=== PATIENT | male | born 1955 | race Hispanic/Latino ===

== ENCOUNTER 2021-05-31 15:33 | Emergency (ER) | payer BC ==
[~2021-05-31] VITALS: Ht 175.3 cm; Wt 95.3 kg
[2021-05-31 17:23] VITALS: BP 143/86
== END 2021-05-31 17:26 | disposition home or self-care (01) ==
LOC: ER 15:57
DX: I10 Essential (primary) hypertension (principal); E11.9 Type 2 diabetes mellitus without complications; E78.5 Hyperlipidemia, unspecified
CPT/HCPCS: 70450; 93005; 99283

== ENCOUNTER 2022-02-11 00:08 | Inpatient (IN) | payer BC, MEDICARE ==
[~2022-02-11] VITALS: Ht 175.3 cm; Wt 95.3 kg
[2022-02-11] MEDS ORDERED: ONDANSETRON HCL INJ 2MG/ML 2ML 2 MG/ML VIAL IV STA (00:27)
[2022-02-11] MEDS ORDERED: SODIUM CHLORIDE 0.9% 1000ML 1,000 ML IV ONE ×2 (00:30→01:45)
[2022-02-11 00:41] LABS: BASOPHILS % 0.4 % (0.0-1.0); EOSINOPHILS # (AUTO) 0.3 (0.0-0.4); EOSINOPHILS % 2.3 % (0.0-6.0); HEMOGLOBIN 12.7 g/dL (14.0-18.0); LYMPHOCYTES # (AUTO) 1.6 (1.0-3.2); LYMPHOCYTES % 14.3 % (18.0-39.1); MEAN CORPUSCULAR HEMOGLOBIN 28.2 pg (28-32); MEAN CORPUSCULAR VOLUME 91.1 fL (81-99); MONOCYTES # (AUTO) 0.5 (0.2-0.8); MONOCYTES % 4.6 % (4.4-11.3); NEUTROPHILS # (AUTO) 8.6 (2.1-6.9); NEUTROPHILS % 78.1 % (38.7-80.0); PLATELET COUNT 335 x10e3/uL (140-360); RED CELL DISTRIBUTION WIDTH 13.1 % (11.7-14.4)
[2022-02-11 01:03] LABS: ALANINE AMINOTRANSFERASE 72 IU/L (0-55); ALBUMIN 4.3 g/dL (3.5-5.0); ALBUMIN/GLOBULIN RATIO 1.4 (0.8-2.0); ALKALINE PHOSPHATASE 48 IU/L (40-150); ANION GAP 17.9 mmol/L (8-16); BLOOD UREA NITROGEN 25 mg/dL (7-26); BUN/CREATININE RATIO 20 (6-25); CALCIUM 9.1 mg/dL (8.4-10.2); CARBON DIOXIDE 23 mmol/L (22-29); CHLORIDE 108 mmol/L (98-107); CREATINE KINASE 489 IU/L (30-200); CREATININE, SERUM 1.26 mg/dL (0.72-1.25); GLUCOSE 151 mg/dL (74-118); POTASSIUM 3.9 mmol/L (3.5-5.1); SODIUM 145 mmol/L (136-145)
[2022-02-11] MEDS ORDERED: Morphine 2mg Syringe 2 MG/ML SYR IV ONE ×2 (01:15→01:45)
[2022-02-11] MEDS ORDERED: IOPAMIDOL 370 MG/ML 100 ML INFUS..BTL INJ ONE (01:20)
[2022-02-11 01:56] LABS: CLARITY,URINE CLEAR (CLEAR); COLOR,URINE YELLOW (YELLOW); KETONES,URINE NEGATIVE (NEGATIVE); LEUKOCYTE ESTERASE ,URINE NEGATIVE (NEGATIVE); NITRITE,URINE NEGATIVE (NEGATIVE); PROTEIN,URINE DIPSTICK NEGATIVE (NEGATIVE)
[2022-02-11 01:56] LABS: CHOL/HDL RATIO 3.7 (3.9-4.7)
[2022-02-11 02:02] LABS: AMORPHOUS SEDIMENT,URINE FEW (FEW); BACTERIA,URINE FEW /HPF; EPITHELIAL CELLS,URINE RARE /LPF; RBC,URINE 0-5 /HPF (0-5); WBC,URINE (MAN) 0-5 /HPF (0-5)
[2022-02-11] MEDS ORDERED: ASPIRIN 81 MG CHEW TAB PO ONE (02:30)
[2022-02-11] MEDS ORDERED: DEXTROSE 50% SYRINGE 50 ML IV PRN (02:30)
[2022-02-11] MEDS: SODIUM CHLORIDE 0.9% 1000ML 1,000 ML IV SCH ×4 (02:36→16:40)
[2022-02-11] MEDS ORDERED: SODIUM CHLORIDE 0.9% 1000ML 1,000 ML ONE (02:40)
[2022-02-11] MEDS: Morphine 4mg INJECTION 4 MG/ML INJ IV PRN ×2 (02:51→16:41)
[2022-02-11] MEDS ORDERED: LOSARTAN POTAS100 MG PO (04:46)
[2022-02-11] MEDS ORDERED: ROSUVASTATIN CA40 MG PO (04:46)
[2022-02-11] MEDS ORDERED: LABETALOL HCL100 MG PO (04:46)
[2022-02-11] MEDS ORDERED: FENOFIBRATE145 M1 PO (04:46)
[2022-02-11] MEDS ORDERED: METFORMIN HCL500 MG PO (04:46)
[2022-02-11] MEDS ORDERED: NIFEDIAC CC60 MG PO (04:46)
[2022-02-11] MEDS: INSULIN REGULAR, HUMAN 100 UNIT/1 ML SQ SCH ×4 (07:30→21:00)
[2022-02-11 09:02] LABS: CREATINE KINASE 367 IU/L (30-200)
[2022-02-11 15:18] VITALS: BP 149/80
[2022-02-11 15:22] VITALS: BP 149/80
[2022-02-11] MEDS ORDERED: LABETALOL HCL 5 MG/ML 20ML VIAL IV PRN (15:30)
[2022-02-11] MEDS: ONDANSETRON HCL INJ 2MG/ML 2ML 2 MG/ML VIAL IV PRN (16:40)
[2022-02-11] MEDS ORDERED: ENOXAPARIN SOD INJ 40 MG/0.4 ML SYR SC SCH (17:00)
[2022-02-11 17:42] LABS: CREATINE KINASE 902 IU/L (30-200)
[2022-02-11 19:51] VITALS: BP 143/85
[2022-02-11 21:00] VITALS: BP 143/85
[2022-02-12] VITALS (8 sets, daily range): BP systolic 146–169; BP diastolic 80–93
[2022-02-12] MEDS: SODIUM CHLORIDE 0.9% 1000ML 1,000 ML IV SCH ×4 (00:42→18:31)
[2022-02-12 05:03] LABS: BASOPHILS % 0.2 % (0.0-1.0); HEMOGLOBIN 12.5 g/dL (14.0-18.0); LYMPHOCYTES # (AUTO) 0.9 (1.0-3.2); LYMPHOCYTES % 8.4 % (18.0-39.1); MEAN CORPUSCULAR HEMOGLOBIN 28.1 pg (28-32); MEAN CORPUSCULAR HGB CONC 30.5 g/dL (31-35); MEAN CORPUSCULAR VOLUME 92.1 fL (81-99); MONOCYTES # (AUTO) 0.4 (0.2-0.8); MONOCYTES % 4.1 % (4.4-11.3); NEUTROPHILS # (AUTO) 9.4 (2.1-6.9); NEUTROPHILS % 86.9 % (38.7-80.0); PLATELET COUNT 252 x10e3/uL (140-360); RED BLOOD COUNT 4.45 x10e6/uL (4.3-5.7); RED CELL DISTRIBUTION WIDTH 13.2 % (11.7-14.4)
[2022-02-12 05:23] LABS: ALBUMIN 3.4 g/dL (3.5-5.0); ALBUMIN/GLOBULIN RATIO 1.1 (0.8-2.0); ANION GAP 12.6 mmol/L (8-16); CALCIUM 8.2 mg/dL (8.4-10.2); CREATININE, SERUM 0.92 mg/dL (0.72-1.25); POTASSIUM 3.6 mmol/L (3.5-5.1)
[2022-02-12] MEDS: ONDANSETRON HCL INJ 2MG/ML 2ML 2 MG/ML VIAL IV PRN (05:38)
[2022-02-12] MEDS: Morphine 4mg INJECTION 4 MG/ML INJ IV PRN (05:38)
[2022-02-12 05:48] LABS: MAGNESIUM 2.2 MG/DL (1.3-2.1)
[2022-02-12 06:27] LABS: THYROID STIMULATING HORMONE 0.421 uIU/mL (0.350-4.940)
[2022-02-12] MEDS: INSULIN REGULAR, HUMAN 100 UNIT/1 ML SQ SCH ×4 (07:30→21:00)
[2022-02-12] MEDS: FENOFIBRATE 145 MG TAB PO SCH (09:00)
[2022-02-12] MEDS: NIFEDIPINE CR 30 MG TAB PO SCH (09:00)
[2022-02-12] MEDS: LABETALOL HCL 100 MG TAB PO SCH ×2 (09:00→16:37)
[2022-02-12] MEDS: LOSARTAN POTASSIUM 100 MG TAB PO SCH (09:00)
[2022-02-12 15:13] LABS: HEMOGLOBIN 12.3 g/dL (14.0-18.0)
[2022-02-12 15:42] LABS: INR 1.11; PARTIAL THROMBOPLASTIN TIME 29.7 seconds (23.8-35.5); PROTHROMBIN TIME 15.3 seconds (11.9-14.5)
[2022-02-12] MEDS ORDERED: PHYTONADIONE 10 MG/ML AMP IV ONE (16:15)
[2022-02-12] MEDS ORDERED: CRESTOR 10MG PO SCH (21:00)
[2022-02-13] VITALS (7 sets, daily range): BP systolic 115–181; BP diastolic 71–98
[2022-02-13] MEDS ORDERED: HYDROCORTISONE ACETATE 25 MG/SUPP.RECT SUPP RC ONE (01:15)
[2022-02-13] MEDS: SODIUM CHLORIDE 0.9% 1000ML 1,000 ML IV SCH ×4 (04:13→17:12)
[2022-02-13 06:31] LABS: BASOPHILS % 0.3 % (0.0-1.0); EOSINOPHILS % 0.2 % (0.0-6.0); HEMATOCRIT 38.7 % (38.2-49.6); HEMOGLOBIN 12.1 g/dL (14.0-18.0); LYMPHOCYTES % 10.2 % (18.0-39.1); MEAN CORPUSCULAR HEMOGLOBIN 28.6 pg (28-32); MEAN CORPUSCULAR HGB CONC 31.3 g/dL (31-35); MEAN CORPUSCULAR VOLUME 91.5 fL (81-99); MONOCYTES # (AUTO) 0.5 (0.2-0.8); MONOCYTES % 4.8 % (4.4-11.3); NEUTROPHILS # (AUTO) 8.6 (2.1-6.9); NEUTROPHILS % 84.2 % (38.7-80.0); PLATELET COUNT 230 x10e3/uL (140-360); RED BLOOD COUNT 4.23 x10e6/uL (4.3-5.7); RED CELL DISTRIBUTION WIDTH 12.9 % (11.7-14.4)
[2022-02-13 07:01] LABS: ALBUMIN 3.1 g/dL (3.5-5.0); ALBUMIN/GLOBULIN RATIO 0.9 (0.8-2.0); ANION GAP 11.6 mmol/L (8-16); CALCIUM 8.7 mg/dL (8.4-10.2); CREATININE, SERUM 0.81 mg/dL (0.72-1.25); MAGNESIUM 1.9 MG/DL (1.3-2.1); POTASSIUM 3.6 mmol/L (3.5-5.1)
[2022-02-13] MEDS: INSULIN REGULAR, HUMAN 100 UNIT/1 ML SQ SCH ×4 (07:30→21:00)
[2022-02-13] MEDS: LOSARTAN POTASSIUM 100 MG TAB PO SCH (10:03)
[2022-02-13] MEDS: NIFEDIPINE CR 30 MG TAB PO SCH (10:04)
[2022-02-13] MEDS: FENOFIBRATE 145 MG TAB PO SCH (10:05)
[2022-02-13] MEDS: LABETALOL HCL 100 MG TAB PO SCH ×2 (10:05→17:12)
[2022-02-13] MEDS: HYDROCORTISONE ACETATE 25 MG/SUPP.RECT SUPP RC SCH ×2 (10:06→17:12)
[2022-02-13] MEDS: Morphine 4mg INJECTION 4 MG/ML INJ IV PRN (17:26)
[2022-02-14] VITALS (7 sets, daily range): BP systolic 99–131; BP diastolic 54–76
[2022-02-14 05:13] LABS: BASOPHILS % 0.3 % (0.0-1.0); EOSINOPHILS # (AUTO) 0.1 (0.0-0.4); EOSINOPHILS % 0.8 % (0.0-6.0); HEMATOCRIT 36.4 % (38.2-49.6); HEMOGLOBIN 11.7 g/dL (14.0-18.0); LYMPHOCYTES # (AUTO) 0.8 (1.0-3.2); LYMPHOCYTES % 8.7 % (18.0-39.1); MEAN CORPUSCULAR HEMOGLOBIN 28.4 pg (28-32); MEAN CORPUSCULAR HGB CONC 32.1 g/dL (31-35); MEAN CORPUSCULAR VOLUME 88.3 fL (81-99); MONOCYTES # (AUTO) 0.5 (0.2-0.8); NEUTROPHILS # (AUTO) 7.6 (2.1-6.9); NEUTROPHILS % 84.3 % (38.7-80.0); PLATELET COUNT 227 x10e3/uL (140-360); RED BLOOD COUNT 4.12 x10e6/uL (4.3-5.7); RED CELL DISTRIBUTION WIDTH 12.4 % (11.7-14.4)
[2022-02-14 05:34] LABS: ALBUMIN 2.8 g/dL (3.5-5.0); ALBUMIN/GLOBULIN RATIO 0.8 (0.8-2.0); ANION GAP 12.4 mmol/L (8-16); CALCIUM 8.4 mg/dL (8.4-10.2); CREATININE, SERUM 0.74 mg/dL (0.72-1.25); POTASSIUM 3.4 mmol/L (3.5-5.1)
[2022-02-14] MEDS: INSULIN REGULAR, HUMAN 100 UNIT/1 ML SQ SCH ×4 (07:30→21:39)
[2022-02-14] MEDS: LOSARTAN POTASSIUM 100 MG TAB PO SCH (08:17)
[2022-02-14] MEDS: FENOFIBRATE 145 MG TAB PO SCH (08:17)
[2022-02-14] MEDS: NIFEDIPINE CR 30 MG TAB PO SCH (08:17)
[2022-02-14] MEDS: LABETALOL HCL 100 MG TAB PO SCH ×2 (08:18→17:00)
[2022-02-14] MEDS: HYDROCORTISONE ACETATE 25 MG/SUPP.RECT SUPP RC SCH ×2 (08:18→17:00)
[2022-02-14] MEDS ORDERED: POTASSIUM CHLORIDE 10MEQ EA PO NR (11:30)
[2022-02-14] MEDS ORDERED: FUROSEMIDE INJ 10 MG/ML 4 ML VIAL IV NR (11:45)
[2022-02-14] MEDS ORDERED: ONDANSETRON HCL 4 MG ORAL DISINTEGRATING TAB SL PRN (16:00)
[2022-02-15] VITALS (7 sets, daily range): BP systolic 104–119; BP diastolic 50–72
[2022-02-15 06:11] LABS: BASOPHILS % 0.4 % (0.0-1.0); EOSINOPHILS # (AUTO) 0.1 (0.0-0.4); EOSINOPHILS % 1.6 % (0.0-6.0); HEMATOCRIT 34.1 % (38.2-49.6); HEMOGLOBIN 11.3 g/dL (14.0-18.0); LYMPHOCYTES % 11.7 % (18.0-39.1); MEAN CORPUSCULAR HEMOGLOBIN 28.2 pg (28-32); MEAN CORPUSCULAR HGB CONC 33.1 g/dL (31-35); MONOCYTES # (AUTO) 0.6 (0.2-0.8); MONOCYTES % 6.9 % (4.4-11.3); NEUTROPHILS # (AUTO) 6.6 (2.1-6.9); NEUTROPHILS % 78.8 % (38.7-80.0); PLATELET COUNT 264 x10e3/uL (140-360); RED BLOOD COUNT 4.01 x10e6/uL (4.3-5.7)
[2022-02-15 06:34] LABS: ALBUMIN 2.6 g/dL (3.5-5.0); ALBUMIN/GLOBULIN RATIO 0.7 (0.8-2.0); ANION GAP 12.5 mmol/L (8-16); CALCIUM 8.6 mg/dL (8.4-10.2); CREATININE, SERUM 0.81 mg/dL (0.72-1.25); POTASSIUM 3.5 mmol/L (3.5-5.1)
[2022-02-15] MEDS: LOSARTAN POTASSIUM 100 MG TAB PO SCH (08:59)
[2022-02-15] MEDS: NIFEDIPINE CR 30 MG TAB PO SCH (08:59)
[2022-02-15] MEDS: LABETALOL HCL 100 MG TAB PO SCH ×2 (09:00→17:09)
[2022-02-15] MEDS: HYDROCORTISONE ACETATE 25 MG/SUPP.RECT SUPP RC SCH ×2 (09:00→17:09)
[2022-02-15] MEDS: FENOFIBRATE 145 MG TAB PO SCH (09:00)
[2022-02-15] MEDS: INSULIN REGULAR, HUMAN 100 UNIT/1 ML SQ SCH ×4 (09:07→21:00)
[2022-02-15] MEDS ORDERED: IOPAMIDOL 370 MG/ML 100 ML INFUS..BTL INJ ONE (10:06)
[2022-02-15] MEDS: ALBUTEROL SULF 0.083% NEB SOLN 3 ML NEB NEB SCH ×2 (11:35→19:20)
[2022-02-15] MEDS: DOXYCYCLINE HYCLATE TABLET 100 MG TAB PO SCH ×2 (12:22→20:29)
[2022-02-16] VITALS (7 sets, daily range): BP systolic 105–124; BP diastolic 58–73
[2022-02-16] MEDS: ALBUTEROL SULF 0.083% NEB SOLN 3 ML NEB NEB SCH ×4 (00:50→19:30)
[2022-02-16 06:23] LABS: BASOPHILS % 0.4 % (0.0-1.0); EOSINOPHILS # (AUTO) 0.2 (0.0-0.4); HEMATOCRIT 29.6 % (38.2-49.6); HEMOGLOBIN 10.3 g/dL (14.0-18.0); LYMPHOCYTES # (AUTO) 1.2 (1.0-3.2); LYMPHOCYTES % 12.7 % (18.0-39.1); MEAN CORPUSCULAR HEMOGLOBIN 30.7 pg (28-32); MEAN CORPUSCULAR HGB CONC 34.8 g/dL (31-35); MEAN CORPUSCULAR VOLUME 88.1 fL (81-99); MONOCYTES # (AUTO) 0.7 (0.2-0.8); MONOCYTES % 7.3 % (4.4-11.3); NEUTROPHILS % 77.2 % (38.7-80.0); PLATELET COUNT 221 x10e3/uL (140-360); RED BLOOD COUNT 3.36 x10e6/uL (4.3-5.7); RED CELL DISTRIBUTION WIDTH 13.9 % (11.7-14.4)
[2022-02-16 06:53] LABS: ALBUMIN 2.5 g/dL (3.5-5.0); ALBUMIN/GLOBULIN RATIO 0.7 (0.8-2.0); ANION GAP 12.7 mmol/L (8-16); CALCIUM 8.9 mg/dL (8.4-10.2); CREATININE, SERUM 0.93 mg/dL (0.72-1.25); MAGNESIUM 2.2 MG/DL (1.3-2.1); POTASSIUM 3.7 mmol/L (3.5-5.1)
[2022-02-16] MEDS: DOXYCYCLINE HYCLATE TABLET 100 MG TAB PO SCH ×2 (08:23→20:49)
[2022-02-16] MEDS: FENOFIBRATE 145 MG TAB PO SCH (08:24)
[2022-02-16] MEDS: LABETALOL HCL 100 MG TAB PO SCH ×2 (08:24→16:47)
[2022-02-16] MEDS: LOSARTAN POTASSIUM 100 MG TAB PO SCH (08:24)
[2022-02-16] MEDS: NIFEDIPINE CR 30 MG TAB PO SCH (08:24)
[2022-02-16] MEDS: HYDROCORTISONE ACETATE 25 MG/SUPP.RECT SUPP RC SCH ×2 (08:25→16:48)
[2022-02-16] MEDS: INSULIN REGULAR, HUMAN 100 UNIT/1 ML SQ SCH ×4 (08:31→21:00)
[2022-02-17 00:36] LABS: % IRON SATURATION 9 % (15-50); IRON 21 ug/dL (65-175); TOTAL IRON BINDING CAPACITY 244 ug/dL (261-478); TRANSFERRIN 174 mg/dL (174-364)
[2022-02-17] MEDS: ALBUTEROL SULF 0.083% NEB SOLN 3 ML NEB NEB SCH ×4 (01:05→20:45)
[2022-02-17 04:53] VITALS: BP 131/77
[2022-02-17 05:40] LABS: BASOPHILS % 0.5 % (0.0-1.0); EOSINOPHILS # (AUTO) 0.2 (0.0-0.4); EOSINOPHILS % 2.6 % (0.0-6.0); HEMATOCRIT 31.6 % (38.2-49.6); HEMOGLOBIN 10.1 g/dL (14.0-18.0); LYMPHOCYTES # (AUTO) 1.3 (1.0-3.2); LYMPHOCYTES % 16.8 % (18.0-39.1); MEAN CORPUSCULAR HEMOGLOBIN 28.1 pg (28-32); MONOCYTES # (AUTO) 0.6 (0.2-0.8); MONOCYTES % 7.5 % (4.4-11.3); NEUTROPHILS # (AUTO) 5.5 (2.1-6.9); NEUTROPHILS % 71.8 % (38.7-80.0); PLATELET COUNT 328 x10e3/uL (140-360); RED BLOOD COUNT 3.59 x10e6/uL (4.3-5.7); RED CELL DISTRIBUTION WIDTH 12.9 % (11.7-14.4)
[2022-02-17 06:05] LABS: ALBUMIN 2.6 g/dL (3.5-5.0); ALBUMIN/GLOBULIN RATIO 0.7 (0.8-2.0); CALCIUM 9.1 mg/dL (8.4-10.2); CREATININE, SERUM 0.93 mg/dL (0.72-1.25)
[2022-02-17 06:21] LABS: AMYLASE 73 U/L (25-125); LIPASE 29 U/L (8-78)
[2022-02-17] MEDS: INSULIN REGULAR, HUMAN 100 UNIT/1 ML SQ SCH ×4 (07:30→21:00)
[2022-02-17 08:00] VITALS: BP 131/77
[2022-02-17 08:34] VITALS: BP 128/65
[2022-02-17] MEDS: FENOFIBRATE 145 MG TAB PO SCH (09:00)
[2022-02-17] MEDS: DOXYCYCLINE HYCLATE TABLET 100 MG TAB PO SCH ×2 (09:00→21:00)
[2022-02-17] MEDS: HYDROCORTISONE ACETATE 25 MG/SUPP.RECT SUPP RC SCH ×2 (09:00→17:00)
[2022-02-17] MEDS: NIFEDIPINE CR 30 MG TAB PO SCH (10:09)
[2022-02-17] MEDS: LABETALOL HCL 100 MG TAB PO SCH ×2 (10:10→17:51)
[2022-02-17] MEDS: LOSARTAN POTASSIUM 100 MG TAB PO SCH (10:10)
[2022-02-17] MEDS: IRON SUCROSE 100 MG in SODIUM CHLORIDE 0.9% 100 ML IV SCH ×2 (11:00→14:28)
[2022-02-17] MEDS ORDERED: BUPIVACAINE 0.5%/EPI 30 ML SDV INJ ONE (11:10)
[2022-02-17] MEDS ORDERED: IOPAMIDOL 300MG/ML 50ML INFUS..BTL IV ONE (11:11)
[2022-02-17] MEDS ORDERED: HYDROCODONE/APAP 7.5MG-325MG 1 EA TAB PO PRN (13:45)
[2022-02-17] MEDS: HYDROMORPHONE 1MG/1ML INJ IV PRN ×3 (14:29→21:20)
[2022-02-17] MEDS: SODIUM CHLORIDE 0.9% 1000ML 1,000 ML IV SCH (14:30)
[2022-02-17 15:20] LABS: HEMATOCRIT 31.6 % (38.2-49.6); HEMOGLOBIN 9.8 g/dL (14.0-18.0)
[2022-02-17 16:08] VITALS: BP 101/53
[2022-02-17] MEDS ORDERED: METOCLOPRAMIDE HCL 10 MG/2ML VIAL ONE (17:01)
[2022-02-17] MEDS ORDERED: PROPOFOL IV EMULSION 10 MG/ML 20 ML VIAL ONE (17:01)
[2022-02-17] MEDS ORDERED: ROCURONIUM BROMIDE 10 MG/ML 5ML VIAL IV ONE (17:01)
[2022-02-17] MEDS ORDERED: SEVOFLURANE INHAL SOLN 250 ML PEN BTL ONE (17:01)
[2022-02-17] MEDS ORDERED: ONDANSETRON HCL INJ 2MG/ML 2ML 2 MG/ML VIAL ONE (17:01)
[2022-02-17] MEDS ORDERED: NEOSTIGMINE 1 MG/ML 10ML VIAL ONE (17:01)
[2022-02-17] MEDS ORDERED: POVIDONE IODINE 0.05% 0.05 % ML PO ONE (17:01)
[2022-02-17] MEDS ORDERED: GLYCOPYRROLATE INJ 0.2 MG/ML VIAL ONE (17:01)
[2022-02-17 20:00] VITALS: BP_SYST 101; BP_SYST 108; BP_DIAS 53; BP_DIAS 92
[2022-02-18] VITALS: BP 131/58
[2022-02-18] MEDS: HYDROMORPHONE 1MG/1ML INJ IV PRN (01:15)
[2022-02-18] MEDS: ALBUTEROL SULF 0.083% NEB SOLN 3 ML NEB NEB SCH ×3 (01:30→13:00)
[2022-02-18 04:00] VITALS: BP 130/82
[2022-02-18] MEDS: SODIUM CHLORIDE 0.9% 1000ML 1,000 ML IV SCH ×2 (05:21→09:45)
[2022-02-18 05:41] LABS: BASOPHILS % 0.4 % (0.0-1.0); EOSINOPHILS # (AUTO) 0.2 (0.0-0.4); HEMATOCRIT 32.3 % (38.2-49.6); HEMOGLOBIN 10.1 g/dL (14.0-18.0); LYMPHOCYTES # (AUTO) 1.1 (1.0-3.2); LYMPHOCYTES % 15.9 % (18.0-39.1); MEAN CORPUSCULAR HEMOGLOBIN 28.3 pg (28-32); MEAN CORPUSCULAR HGB CONC 31.3 g/dL (31-35); MEAN CORPUSCULAR VOLUME 90.5 fL (81-99); MONOCYTES # (AUTO) 0.6 (0.2-0.8); MONOCYTES % 8.1 % (4.4-11.3); NEUTROPHILS % 71.9 % (38.7-80.0); PLATELET COUNT 363 x10e3/uL (140-360); RED BLOOD COUNT 3.57 x10e6/uL (4.3-5.7); RED CELL DISTRIBUTION WIDTH 13.5 % (11.7-14.4)
[2022-02-18 06:02] LABS: ALBUMIN 2.6 g/dL (3.5-5.0); ALBUMIN/GLOBULIN RATIO 0.7 (0.8-2.0); ANION GAP 17.3 mmol/L (8-16); CALCIUM 8.6 mg/dL (8.4-10.2); CREATININE, SERUM 0.87 mg/dL (0.72-1.25); MAGNESIUM 1.9 MG/DL (1.3-2.1); POTASSIUM 4.3 mmol/L (3.5-5.1)
[2022-02-18] MEDS: INSULIN REGULAR, HUMAN 100 UNIT/1 ML SQ SCH ×2 (07:30→11:30)
[2022-02-18 07:43] VITALS: BP 130/82
[2022-02-18] MEDS: DOXYCYCLINE HYCLATE TABLET 100 MG TAB PO SCH (07:59)
[2022-02-18] MEDS: FENOFIBRATE 145 MG TAB PO SCH (07:59)
[2022-02-18] MEDS: NIFEDIPINE CR 30 MG TAB PO SCH (08:08)
[2022-02-18] MEDS: LABETALOL HCL 100 MG TAB PO SCH (08:13)
[2022-02-18] MEDS: LOSARTAN POTASSIUM 100 MG TAB PO SCH (08:13)
[2022-02-18] MEDS: HYDROCORTISONE ACETATE 25 MG/SUPP.RECT SUPP RC SCH (09:00)
[2022-02-18 09:06] VITALS: BP 127/76
[2022-02-18] MEDS ORDERED: LEVOFLOXACIN250 MG PO (09:39)
[2022-02-18] MEDS ORDERED: PROVENTIL HFA6.7 GM INH (09:39)
[2022-02-18] MEDS ORDERED: HYDROCODON-ACE1 EA12 PO (09:39)
== END 2022-02-18 13:38 | disposition home or self-care (01) | DRG 417 ==
LOC: ER 00:27 → ERHOLD 02:22 → MED/SURG2 13:58
PROVIDERS: ADMIT Internal Medicine; ATTEND Internal Medicine
PROC: BF141ZZ Fluoroscopy of Gallbladder, Bile Ducts and Pancreatic Ducts using Low Osmolar Contrast (ICD-10-PCS; 2022-02-17)
PROC: 0FT44ZZ Resection of Gallbladder, Percutaneous Endoscopic Approach (ICD-10-PCS; principal; 2022-02-17 11:30)
DX: K80.20 Calculus of gallbladder without cholecystitis without obstruction (principal); J18.9 Pneumonia, unspecified organism; K85.90 Acute pancreatitis without necrosis or infection, unspecified; J96.01 Acute respiratory failure with hypoxia; N17.9 Acute kidney failure, unspecified; I71.43 Infrarenal abdominal aortic aneurysm, without rupture; R73.03 Prediabetes; E66.9 Obesity, unspecified; I10 Essential (primary) hypertension; E11.69 Type 2 diabetes mellitus with other specified complication; E78.5 Hyperlipidemia, unspecified; J43.9 Emphysema, unspecified; E66.09 Other obesity due to excess calories; Z68.31 Body mass index [BMI] 31.0-31.9, adult; I11.9 Hypertensive heart disease without heart failure; K76.0 Fatty (change of) liver, not elsewhere classified
CPT/HCPCS: 36415; 71045; 71046; 71260; 74177; 74181; 74300; 80053; 80061; 81001; 82150; 82550; 82553; 82607; 82728; 82746; 82948; 83036; 83518; 83540; 83690; 83735; 83880; 84443; 84466; 84484; 85014; 85018; 85025; 85045; 85610; 85730; 87040; 87070; 87400; 87449; 88304; 93005; 94640; 94799; 99285; C1766; J1170; J1756; J1817; J1940; J2270; J2405; J2543; J2710; J2765; J3430; J7030; J7050; Q9967

== ENCOUNTER → 2022-06-04 | Outpatient (CLI) | payer BC, MEDICARE ==
[~2022-06-04] MED LIST: FENOFIBRATE145 M1 PO; HYDROCODON-ACE1 EA12 PO; IOPAMIDOL 370 MG/ML 100 ML INFUS..BTL INJ ONE; LABETALOL HCL100 MG PO; LEVOFLOXACIN250 MG PO; LOSARTAN POTAS100 MG PO; METFORMIN HCL500 MG PO; NIFEDIAC CC60 MG PO; PROVENTIL HFA6.7 GM INH; ROSUVASTATIN CA40 MG PO; SODIUM CHLORIDE 0.9% 100 ML ONE
[2022-06-04 12:00] LABS: CREATININE, SERUM 1.18 mg/dL (0.72-1.25)
== END ==
LOC: CT 11:18
PROVIDERS: ATTEND Nurse Practitioner
DX: I71.40 Abdominal aortic aneurysm, without rupture, unspecified (principal)
CPT/HCPCS: 36415; 74174; 82565; 84520; J7050; Q9967

== ENCOUNTER → 2022-08-06 | Day surgery (SDC) | payer BC, MEDICARE ==
[2022-07-30 15:29] LABS: BASOPHILS % 0.6 % (0.0-1.0); EOSINOPHILS # (AUTO) 0.3 (0.0-0.4); HEMATOCRIT 35.6 % (38.2-49.6); HEMOGLOBIN 11.3 g/dL (14.0-18.0); LYMPHOCYTES # (AUTO) 1.9 (1.0-3.2); LYMPHOCYTES % 39.3 % (18.0-39.1); MEAN CORPUSCULAR HEMOGLOBIN 27.8 pg (28-32); MEAN CORPUSCULAR HGB CONC 31.7 g/dL (31-35); MEAN CORPUSCULAR VOLUME 87.5 fL (81-99); MONOCYTES # (AUTO) 0.4 (0.2-0.8); MONOCYTES % 9.1 % (4.4-11.3); NEUTROPHILS # (AUTO) 2.1 (2.1-6.9); NEUTROPHILS % 43.8 % (38.7-80.0); PLATELET COUNT 275 x10e3/uL (140-360); RED BLOOD COUNT 4.07 x10e6/uL (4.3-5.7); RED CELL DISTRIBUTION WIDTH 14.2 % (11.7-14.4)
[~2022-08-06] MED LIST changes: +CENTRUM ADULTS1 EACH PO; +CLONIDINE PO; +EPHEDRINE SULFATE INJ 50 MG/ML VIAL ONE; +FENTANYL CITRATE/PF 100MCG/2 ML INJ ONE; +GLYCOPYRROLATE INJ 0.2 MG/ML VIAL ONE; +HYOSCYAMINE SULFATE 0.5 MG/ML INJ ONE; -IOPAMIDOL 370 MG/ML 100 ML INFUS..BTL INJ ONE; +LACTATED RINGER'S 1,000 ML ONE; +LIDOCAINE HCL 2% LOCAL INJ 5 ML SDV VIAL INJ ONE; +POVIDONE IODINE 0.05% 0.05 % ML PO ONE; +PROPOFOL IV EMULSION 10 MG/ML 20 ML VIAL ONE; +PROPOFOL IV EMULSION 50 ML IV ONE; -SODIUM CHLORIDE 0.9% 100 ML ONE
[2022-08-06 15:00] VITALS: BP 129/90
[2022-08-06 15:20] LABS: % IRON SATURATION 18 % (15-50); IRON 79 ug/dL (65-175); TOTAL IRON BINDING CAPACITY 437 ug/dL (261-478); TRANSFERRIN 312 mg/dL (174-364)
[2022-08-11 06:13] LABS: ENDOMYSIAL ANTIBODIES, IGA Negative (Negative)
== END | disposition home or self-care (01) ==
LOC: OR 10:36
PROVIDERS: ATTEND Internal Medicine Gastroenterology
DX: D64.89 Other specified anemias (principal); D12.3 Benign neoplasm of transverse colon; D12.5 Benign neoplasm of sigmoid colon; D12.8 Benign neoplasm of rectum; K29.70 Gastritis, unspecified, without bleeding; K31.89 Other diseases of stomach and duodenum; K20.90 Esophagitis, unspecified without bleeding; K57.30 Diverticulosis of large intestine without perforation or abscess without bleeding; K64.8 Other hemorrhoids; D72.820 Lymphocytosis (symptomatic); Z71.3 Dietary counseling and surveillance; E11.9 Type 2 diabetes mellitus without complications; I10 Essential (primary) hypertension; E78.00 Pure hypercholesterolemia, unspecified; Z01.810 Encounter for preprocedural cardiovascular examination; Z01.812 Encounter for preprocedural laboratory examination; Z79.84 Long term (current) use of oral hypoglycemic drugs; Z79.899 Other long term (current) drug therapy; Z68.30 Body mass index [BMI] 30.0-30.9, adult
CPT/HCPCS: 36415 ×2; 43239; 45385; 82607; 82746; 82784; 82948; 83516; 83540; 84466; 85025; 85045; 86256; 93005; C9113; J1980; J2001; J2704 ×2; J3010; J7121; 45378; 45380

== ENCOUNTER → 2022-09-06 | Outpatient (CLI) | payer BC ==
[~2022-09-06] MED LIST changes: -EPHEDRINE SULFATE INJ 50 MG/ML VIAL ONE; -FENTANYL CITRATE/PF 100MCG/2 ML INJ ONE; -GLYCOPYRROLATE INJ 0.2 MG/ML VIAL ONE; -HYOSCYAMINE SULFATE 0.5 MG/ML INJ ONE; -LACTATED RINGER'S 1,000 ML ONE; -LIDOCAINE HCL 2% LOCAL INJ 5 ML SDV VIAL INJ ONE; -POVIDONE IODINE 0.05% 0.05 % ML PO ONE; -PROPOFOL IV EMULSION 10 MG/ML 20 ML VIAL ONE; -PROPOFOL IV EMULSION 50 ML IV ONE
== END ==
LOC: DX 09:52
PROVIDERS: ATTEND Internal Medicine Gastroenterology
DX: D64.9 Anemia, unspecified (principal)
CPT/HCPCS: 74250

== ENCOUNTER 2024-07-09 06:26 | Observation (INO) | payer BC ==
[~2024-07-09] VITALS: Ht 175.3 cm; Wt 90.7 kg
[2024-07-09 06:54] LABS: BASOPHILS % 0.7 % (0.0-1.0); EOSINOPHILS # (AUTO) 0.2 (0.0-0.4); EOSINOPHILS % 5.5 % (0.0-6.0); HEMATOCRIT 36.7 % (38.2-49.6); HEMOGLOBIN 11.9 g/dL (14.0-18.0); LYMPHOCYTES # (AUTO) 1.1 (1.0-3.2); LYMPHOCYTES % 25.1 % (18.0-39.1); MEAN CORPUSCULAR HEMOGLOBIN 28.3 pg (28-32); MEAN CORPUSCULAR HGB CONC 32.4 g/dL (31-35); MEAN CORPUSCULAR VOLUME 87.2 fL (81-99); MONOCYTES # (AUTO) 0.3 (0.2-0.8); MONOCYTES % 7.6 % (4.4-11.3); NEUTROPHILS # (AUTO) 2.6 (2.1-6.9); NEUTROPHILS % 60.6 % (38.7-80.0); PLATELET COUNT 286 x10e3/uL (140-360); RED BLOOD COUNT 4.21 x10e6/uL (4.3-5.7); WHITE BLOOD COUNT 4.22 x10e3/uL (4.8-10.8)
[2024-07-09 07:24] LABS: INR 0.92; PROTHROMBIN TIME 12.9 seconds (11.9-14.5)
[2024-07-09 07:25] LABS: PARTIAL THROMBOPLASTIN TIME 27.8 seconds (23.8-35.5)
[2024-07-09 07:31] LABS: ALBUMIN 4.2 g/dL (3.5-5.0); ALBUMIN/GLOBULIN RATIO 1.4 (0.8-2.0); ANION GAP 14.1 mmol/L (8-16); BILIRUBIN,TOTAL 0.3 mg/dL (0.2-1.2); CALCIUM 9.4 mg/dL (8.4-10.2); CREATININE, SERUM 1.46 mg/dL (0.72-1.25); POTASSIUM 4.1 mmol/L (3.5-5.1); TOTAL PROTEIN 7.1 g/dL (6.5-8.1)
[2024-07-09 07:36] LABS: BILIRUBIN,URINE NEGATIVE (NEGATIVE); CLARITY,URINE CLEAR (CLEAR); COLOR,URINE YELLOW (YELLOW); GLUCOSE, URINE 1+ (NEGATIVE); KETONES,URINE NEGATIVE (NEGATIVE); LEUKOCYTE ESTERASE ,URINE NEGATIVE (NEGATIVE); NITRITE,URINE NEGATIVE (NEGATIVE); PH,URINE 5.5 (5 - 7); PROTEIN,URINE DIPSTICK 1+ (NEGATIVE); URINE UROBILINOGEN 0.2 mg/dL (0.2 - 1)
[2024-07-09 07:37] LABS: TROPONIN I 0.015 ng/mL (0-0.300)
[2024-07-09] MEDS: SODIUM CHLORIDE 0.9% 1000ML 1,000 ML IV STA (07:40)
[2024-07-09 07:50] LABS: INFLUENZA A AG NEGATIVE (NEGATIVE)
[2024-07-09 07:51] LABS: CORONAVIRUS COVID-19 AG NEGATIVE (NEGATIVE); INFLUENZA B AG NEGATIVE (NEGATIVE)
[2024-07-09 08:00] LABS: BACTERIA,URINE MANY /HPF; EPITHELIAL CELLS,URINE FEW /LPF
[2024-07-09] MEDS ORDERED: ONDANSETRON HCL INJ 2MG/ML 2ML 2 MG/ML VIAL IV PRN (08:15)
[2024-07-09 09:15] VITALS: BP 119/68; PULSE 54; RESP 18; TEMP 97.9; O2SAT 97
[2024-07-09 09:20] VITALS: PULSE 61; RESP 14; TEMP 98.3
[2024-07-09] MEDS: SODIUM CHLORIDE 0.9% 1000ML 1,000 ML IV SCH (09:41)
[2024-07-09 12:04] VITALS: BP 128/80; PULSE 61; RESP 20; TEMP 97.2; O2SAT 61
[2024-07-09] MEDS ORDERED: ACETAMINOPHEN 325 MG TAB PO PRN (13:15)
[2024-07-09] MEDS ORDERED: BISACODYL 10 MG SUPP PR PRN (13:15)
[2024-07-09] MEDS ORDERED: POLYETHYLENE GLYCOL 3350 17 GM PACK PO PRN (13:15)
[2024-07-09] MEDS: HEPARIN SOD (PORCINE) 5,000 UNIT/ML VIAL SC SCH (13:54)
[2024-07-09 15:06] LABS: TROPONIN I 0.006 ng/mL (0-0.300)
[2024-07-09 15:41] VITALS: BP 131/78; PULSE 54; RESP 19; TEMP 97.9; O2SAT 99
[2024-07-09 15:52] LABS: ANION GAP 14.2 mmol/L (8-16); CALCIUM 9.1 mg/dL (8.4-10.2); CREATININE, SERUM 1.27 mg/dL (0.72-1.25); POTASSIUM 4.2 mmol/L (3.5-5.1)
[2024-07-09] MEDS ORDERED: LOSARTAN POTASS50 MG PO (17:46)
[2024-07-09] MEDS ORDERED: ASPIRIN CHEW81 MG PO (17:46)
[2024-07-09] MEDS ORDERED: Ferrous Sulfate PO (17:46)
[2024-07-09] MEDS ORDERED: CRESTOR 10MG PO SCH (21:00)
[2024-07-10] MEDS ORDERED: FERROUS SULFATE 325 MG TAB PO SCH (09:00)
[2024-07-10] MEDS ORDERED: FENOFIBRATE 145 MG TAB PO SCH (09:00)
[2024-07-10] MEDS ORDERED: ASPIRIN 81 MG CHEW TAB PO SCH (09:00)
== END 2024-07-09 18:40 | disposition home or self-care (01) ==
LOC: ER 06:46 → ERHOLD 08:14 → MED/SURG2 09:35
PROVIDERS: ADMIT Internal Medicine; ATTEND Internal Medicine
DX: E86.0 Dehydration (principal); N17.9 Acute kidney failure, unspecified; R55 Syncope and collapse; E78.5 Hyperlipidemia, unspecified; I10 Essential (primary) hypertension; R73.03 Prediabetes; I71.43 Infrarenal abdominal aortic aneurysm, without rupture; D64.9 Anemia, unspecified; N30.00 Acute cystitis without hematuria
CPT/HCPCS: 36415; 70450; 71045; 80048; 80053; 81001; 82550; 82948; 83735; 83880; 84484; 85025; 85610; 85730; 87086; 87428; 93005; 99284; G0378; J0696; J1644; J7030